=== PATIENT | male | born 1975 | race Hispanic/Latino ===

== ENCOUNTER 2018-10-09 11:22 | Emergency (ER) | payer BC, OTHER ==
[~2018-10-09] VITALS: Ht 167.6 cm; Wt 136.1 kg
[2018-10-09] MEDS ORDERED: KETOROLAC TROMETHAMINE 60 MG/2 ML VIAL IM ONE (11:45)
[2018-10-09] MEDS ORDERED: DIAZEPAM 5 MG TAB PO ONE (11:45)
[2018-10-09] MEDS ORDERED: DIAZEPAM 2 MG TAB PO ONE (11:45)
[2018-10-09] MEDS ORDERED: HYDROCODONE/APAP 10MG-325MG TAB PO ONE (11:45)
[2018-10-09] MEDS ORDERED: DEXAMETHASONE SOD PHOS 10 MG/1 ML VIAL INJ ONE (11:45)
[2018-10-09] MEDS ORDERED: LISINOPRIL 10 MG TAB PO ONE (11:45)
[2018-10-09 12:48] LABS: BILIRUBIN,URINE NEGATIVE (NEGATIVE); CLARITY,URINE CLEAR (CLEAR); COLOR,URINE YELLOW (YELLOW); EPITHELIAL CELLS,URINE MODERATE /LPF; KETONES,URINE NEGATIVE (NEGATIVE); LEUKOCYTE ESTERASE ,URINE NEGATIVE (NEGATIVE); NITRITE,URINE NEGATIVE (NEGATIVE); PROTEIN,URINE DIPSTICK NEGATIVE (NEGATIVE); RBC,URINE 0-5 /HPF (0-5); URINE UROBILINOGEN 0.2 mg/dL (0.2 - 1); WBC,URINE (MAN) 0-5 /HPF (0-5)
[2018-10-09 12:51] LABS: MUCUS,URINE RARE (RARE); TRANSITIONAL EPI CELLS,URINE FEW
[2018-10-09 13:16] VITALS: BP 154/100
== END 2018-10-09 13:24 | disposition home or self-care (01) ==
LOC: ER 11:22
DX: R10.11 Right upper quadrant pain (principal); R10.12 Left upper quadrant pain; N30.91 Cystitis, unspecified with hematuria; I10 Essential (primary) hypertension; E11.9 Type 2 diabetes mellitus without complications; J44.9 Chronic obstructive pulmonary disease, unspecified; M79.7 Fibromyalgia
CPT/HCPCS: 81001; 99283; J1100; J1885

== ENCOUNTER 2020-10-23 07:18 | Observation (INO) | payer OTHER ==
[~2020-10-23] VITALS: Ht 170.2 cm; Wt 112.0 kg
[2020-10-23] MEDS ORDERED: ASPIRIN 81 MG CHEW TAB PO ONE ×2 (07:45→08:15)
[2020-10-23 08:06] LABS: BASOPHILS # (AUTO) 0.1 (0.0-0.1); BASOPHILS % 0.8 % (0.0-1.0); EOSINOPHILS # (AUTO) 0.3 (0.0-0.4); LYMPHOCYTES # (AUTO) 2.1 (1.0-3.2); LYMPHOCYTES % 27.3 % (18.0-39.1); MEAN CORPUSCULAR HEMOGLOBIN 30.2 pg (28-32); MEAN CORPUSCULAR HGB CONC 32.6 g/dL (31-35); MEAN CORPUSCULAR VOLUME 92.6 fL (81-99); MONOCYTES # (AUTO) 0.4 (0.2-0.8); MONOCYTES % 5.4 % (4.4-11.3); NEUTROPHILS # (AUTO) 4.8 (2.1-6.9); NEUTROPHILS % 62.1 % (38.7-80.0); PLATELET COUNT 325 x10e3/uL (140-360); RED BLOOD COUNT 4.97 x10e6/uL (4.3-5.7); RED CELL DISTRIBUTION WIDTH 12.9 % (11.7-14.4)
[2020-10-23 08:27] LABS: ALANINE AMINOTRANSFERASE 28 IU/L (0-55); ALBUMIN 3.9 g/dL (3.5-5.0); ALBUMIN/GLOBULIN RATIO 0.9 (0.8-2.0); ALKALINE PHOSPHATASE 81 IU/L (40-150); ANION GAP 13.4 mmol/L (8-16); BLOOD UREA NITROGEN 11 mg/dL (7-26); BUN/CREATININE RATIO 11 (6-25); CALCIUM 8.9 mg/dL (8.4-10.2); CARBON DIOXIDE 30 mmol/L (22-29); CHLORIDE 102 mmol/L (98-107); CREATINE KINASE 431 IU/L (30-200); EST GLOMERULAR FILTRATION RATE > 60 ML/MIN (60-); GLUCOSE 114 mg/dL (74-118); POTASSIUM 3.4 mmol/L (3.5-5.1); SODIUM 142 mmol/L (136-145)
[2020-10-23] MEDS ORDERED: ONDANSETRON HCL INJ 2MG/ML 2ML 2 MG/ML VIAL IV PRN (09:00)
[2020-10-23] MEDS ORDERED: HYDRALAZINE HCL 20 MG/ML VIAL IV PRN (09:00)
[2020-10-23] MEDS ORDERED: ACETAMINOPHEN 325 MG TAB PO PRN (09:00)
[2020-10-23] MEDS ORDERED: TEMAZEPAM 15 MG CAP PO PRN (09:00)
[2020-10-23] MEDS ORDERED: POLYETHYLENE GLYCOL 3350 17 GM PACK PO PRN (09:00)
[2020-10-23] MEDS ORDERED: DOCUSATE SODIUM 100 MG CAP PO SCH (09:00)
[2020-10-23] MEDS ORDERED: GADOBENATE DIMEGLUMINE 1 ML IV ONE (10:59)
[2020-10-23] MEDS ORDERED: FAMOTIDINE 20 MG TAB PO SCH (16:30)
[2020-10-23 17:44] VITALS: BP 108/80
[2020-10-23 17:55] VITALS: BP 108/80
[2020-10-23 18:29] LABS: CREATINE KINASE MB 0.8 ng/mL (0-5.0)
[2020-10-23] MEDS ORDERED: LISINOPRIL10 MG PO (19:06)
[2020-10-23] MEDS ORDERED: ATORVASTATIN CA20 MG PO (19:06)
[2020-10-23] MEDS ORDERED: SYNJARDY 5-1,01 EACH PO (19:10)
[2020-10-23] MEDS ORDERED: LASIX20 MG PO (19:10)
[2020-10-23] MEDS ORDERED: POTASSIUM CHLORIDE 20 MEQ TAB CR PO ONE (19:45)
[2020-10-23] MEDS ORDERED: ATORVASTATIN 20 MG TAB PO SCH (21:00)
[2020-10-24] MEDS ORDERED: LISINOPRIL 10 MG TAB PO SCH (09:00)
[2020-10-24] MEDS ORDERED: FUROSEMIDE 20 MG TAB PO SCH (09:00)
[2020-10-24] MEDS ORDERED: METFORMIN HCL PO SCH (09:00)
[2020-10-24] MEDS ORDERED: EMPAGLIFLOZIN PO SCH (09:00)
[2020-10-24] MEDS ORDERED: [UNRECOGNIZED DRUG - OTHER] PO SCH (09:00)
== END 2020-10-23 20:30 | disposition home or self-care (01) ==
LOC: ER 08:07 → ERHOLD 08:13 → MED/SURG2 17:18
PROVIDERS: ADMIT Internal Medicine; ATTEND Internal Medicine
DX: R53.1 Weakness (principal); E11.9 Type 2 diabetes mellitus without complications; I10 Essential (primary) hypertension; E87.6 Hypokalemia; G80.1 Spastic diplegic cerebral palsy; M54.12 Radiculopathy, cervical region; I65.23 Occlusion and stenosis of bilateral carotid arteries; Z20.822 Contact with and (suspected) exposure to COVID-19
CPT/HCPCS: 36415; 70450; 70551; 70552; 72125; 80053; 82550; 82553; 84484; 85025; 93306; 93880; 97161; 99284; A9577; G0378; U0002

== ENCOUNTER 2023-03-01 11:57 | Emergency (ER) | payer SELFPAY ==
[~2023-03-01] VITALS: Ht 170.2 cm; Wt 124.7 kg
[~2023-03-01 11:57] MED LIST: ATORVASTATIN CA20 MG PO; LASIX20 MG PO; LISINOPRIL10 MG PO; SYNJARDY 5-1,01 EACH PO
[2023-03-01] MEDS ORDERED: KETOROLAC TROMETHAMINE 60 MG/2 ML VIAL IM ONE (12:15)
[2023-03-01 13:21] VITALS: O2SAT 98
== END 2023-03-01 13:23 | disposition home or self-care (01) ==
LOC: ER 12:02
DX: M25.511 Pain in right shoulder (principal); S40.011A Contusion of right shoulder, initial encounter; W01.0XXA Fall on same level from slipping, tripping and stumbling without subsequent striking against object, initial encounter; Y93.01 Activity, walking, marching and hiking; Y92.89 Other specified places as the place of occurrence of the external cause; I10 Essential (primary) hypertension; E11.9 Type 2 diabetes mellitus without complications; I50.9 Heart failure, unspecified; G80.9 Cerebral palsy, unspecified
CPT/HCPCS: 73030; 99284; J1885

== ENCOUNTER 2024-08-01 13:03 | Emergency (ER) | payer OTHER ==
[~2024-08-01] VITALS: Ht 167.6 cm; Wt 127.0 kg
[2024-08-01 13:32] VITALS: TEMP 98.3
[2024-08-01 14:00] VITALS: PULSE 84; RESP 17; O2SAT 100
== END 2024-08-01 15:15 | disposition home or self-care (01) ==
LOC: ER 13:18
DX: S00.83XA Contusion of other part of head, initial encounter (principal); W22.09XA Striking against other stationary object, initial encounter; Y92.89 Other specified places as the place of occurrence of the external cause; G80.9 Cerebral palsy, unspecified; E11.65 Type 2 diabetes mellitus with hyperglycemia; I10 Essential (primary) hypertension; R94.31 Abnormal electrocardiogram [ECG] [EKG]
CPT/HCPCS: 36415; 70450; 72125; 82948; 93005; 99283